=== PATIENT | female | born 1960 | race Caucasian/White ===

== ENCOUNTER → 2016-06-30 | Outpatient (CLI) | payer OTHER ==
--- NOTE | 2016-06-30 13:01 | MA ---
Diagnostic Digital Mammogram bilateral Breast Clinical Indications: Transient bloody nipple discharge on the left with compression. The patient is due for bilateral mammogram Technique: Routine CC and mediolateral oblique views were obtained of each breast. 90 degree lateral view was also obtained on the left. This examination is processed by the [employer] computer-aided detectio n system. Comparison: July 05, 2015; March 23, 2014; and studies dating back to September 21, 2008. Breast density: B; There are scattered areas of fibroglandular density. Findings: CAD was reviewed. There are no new masses, new clusters of microcalcifications, or significant axillary lymphadenopathy . Impression: Negative mammogram. BI-RADS 1 These findings were communicated with the patient. Recommendation: Subsequent ultrasound was performed on the left to evaluate for possible retroareola r lesion.
--- NOTE | 2016-06-30 14:03 | US ---
Ultrasound left breast 1301 hours. History: Transient intermittent bloody nipple discharge on the left with compression. Findings: Ultrasound left breast demonstrates a few normal appearing ducts in the retroareolar locati on. No underlying solid or cystic mass is appreciated. Impression: 1. Benign findings ultrasound left breast with attention retroareolar location with normal appearing ducts noted. BI-RADS 2 Routine annual mammographic followup recommended in one year. The results of this study were reviewed with the patient.
== END ==
LOC: BMCIMAGING 12:14
PROVIDERS: ATTEND Physician Assistant
DX: Z12.39 Encounter for other screening for malignant neoplasm of breast (principal); N64.52 Nipple discharge
CPT/HCPCS: G0204

== ENCOUNTER → 2017-10-19 | Outpatient (CLI) | payer OTHER | LOC: BMCIMAGING 13:22 | PROVIDERS: ATTEND Physician Assistant | DX: Z12.31 Encounter for screening mammogram for malignant neoplasm of breast (principal); Z80.3 Family history of malignant neoplasm of breast ==